=== PATIENT | female | born 1990 | race African-American/Black ===

== ENCOUNTER 2016-08-15 01:45 | Emergency (ER) | payer SELFPAY ==
[~2016-08-15] VITALS: Ht 154.9 cm; Wt 44.5 kg
[2016-08-15 02:00] VITALS: BP 124/58
[2016-08-15 02:07] LABS: BILIRUBIN,URINE NEGATIVE (NEG); GLUCOSE,URINE NEGATIVE (NEG); NITRITE,URINE NEGATIVE (NEG); PH,URINE 7.5; PROTEIN,URINE NEGATIVE (NEG-TRACE); UROBILINOGEN,URINE 0.2 mg/dL (0.2 mg/dL)
[2016-08-15 02:13] LABS: BACTERIA,URINE MODERATE /HPF (0-FEW); RBC,URINE OCC /HPF (0-2); SQUAMOUS EPITHELIAL CELL,UR MOD /LPF
[2016-08-15 02:27] LABS: BASO % 0 % (0-3); EOS % 1 % (0-3); HEMOGLOBIN 12.6 g/dL (12.0-15.5); LYMPH # 4.3 x10^3/uL (1.0-4.8); LYMPH % 42 % (24-48); MEAN CORPUSCULAR HEMOGLOBIN 29 pg (25-35); MEAN CORPUSCULAR HGB CONC 34 g/dL (31-37); MEAN CORPUSCULAR VOLUME 86 fL (79-100); MONO % 9 % (0-9); NEUT % 48 % (31-73); PLATELET COUNT 272 x10^3/uL (140-400); RED BLOOD COUNT 4.29 x10^6/uL (3.50-5.40); RED CELL DISTRIBUTION WIDTH 13.1 % (11.5-14.5); WHITE BLOOD COUNT 10.2 x10^3/uL (4.0-11.0)
[2016-08-15] MEDS ORDERED: NITR100C62 PO (02:40)
--- NOTE | 2016-08-15 02:40 | PHYS DOC ---
Past Medical History Past Medical History: Other Additional Past Medical Histor: RAPID HEART RATE Past Surgical History: Tonsillectomy Alcohol Use: None Drug Use: None Adult General Chief Complaint Chief Complaint: ABDOMINAL PAIN IN HPI HPI Patient is a 26 year old female presents to emergency department for evaluation of abdominal pain in early . She says that the pain is suprapubic and associated with some dysuria and vaginal discharge but no nausea vomiting diarrhea constipation. Pain is sharp. She is with 4 prior miscarriages. Eyes any vaginal bleeding to me. She reports that her last menstrual period was on July 14. She is in no obvious distress with normal vital signs. Review of Systems Review of Systems Constitutional: Denies fever or chills [] GI: + abdominal pain. No nausea, vomiting, bloody stools or diarrhea [] : + dysuria. No hematuria [] Musculoskeletal: Denies back pain or joint pain [ Neurologic: Denies headache, focal weakness or sensory changes [] Allergies Allergies Allergies Coded Allergies Type Severity Reaction Last Updated Verified No Known Drug Allergies 09/25/13 No Physical Exam Physical Exam Constitutional: Well developed, well nourished, no acute distress, non-toxic appearance. [] Cardiovascular:Heart rate regular rhythm, no murmur [] Lungs & Thorax: Bilateral breath sounds clear to auscultation [] Abdomen: Bowel sounds normal, soft, no tenderness, no masses, no pulsatile masses. [] DOCUMENT MANAGEMENT CONSULTANT: vaginal discharge noted. No bleeding noted. Neg CMT or adnexal tenderness. Neurologic: Alert and oriented X 3, normal motor function, normal sensory function, no focal deficits noted. [] Current Patient Data Vital Signs Vital Signs Date Time Temp Pulse Resp B/P Pulse Ox O2 Delivery O2 Flow Rate FiO2 08/15/16 02:00 98.4 125 16 124/58 98 Room Air 98.4 Lab Values Laboratory Tests Test 08/15/16 01:04 08/15/16 02:00 08/15/16 02:22 POC Urine HCG, Qualitative Hcg positive (Negative) Urine Collection Type Unknown Urine Color Yellow Urine Clarity Cloudy Urine pH 7.5 Urine Specific [place] 1.020 Urine Protein Negativemg/dL (NEG-TRACE) Urine Glucose (UA) Negativemg/dL (NEG) Urine Ketones (Stick) Negativemg/dL (NEG) Urine Blood Negative (NEG) Urine Nitrite Negative (NEG) Urine Bilirubin Negative (NEG) Urine Urobilinogen Dipstick 0.2mg/dL (0.2 mg/dL) Urine Leukocyte Esterase Small (NEG) Urine RBC Occ/HPF (0-2) Urine WBC 5-10/HPF (0-4) Urine Squamous Epithelial Cells Mod/LPF Urine Amorphous Sediment Present/HPF Urine Bacteria Moderate/HPF (0-FEW) Urine Mucus Slight/LPF White Blood Count 10.2x10^3/uL (4.0-11.0) Red Blood Count 4.29x10^6/uL (3.50-5.40) Hemoglobin 12.6g/dL (12.0-15.5) Hematocrit 37.0% (36.0-47.0) Mean Corpuscular Volume 86fL (79-100) Mean Corpuscular Hemoglobin 29pg (25-35) Mean Corpuscular Hemoglobin Concent 34g/dL (31-37) Red Cell Distribution Width 13.1% (11.5-14.5) Platelet Count 272x10^3/uL (140-400) Neutrophils (%) (Auto) 48% (31-73) Lymphocytes (%) (Auto) 42% (24-48) Monocytes (%) (Auto) 9% (0-9) Eosinophils (%) (Auto) 1% (0-3) Basophils (%) (Auto) 0% (0-3) Neutrophils # (Auto) 4.9x10^3uL (1.8-7.7) Lymphocytes # (Auto) 4.3x10^3/uL (1.0-4.8) Monocytes # (Auto) 0.9x10^3/uL (0.0-1.1) Eosinophils # (Auto) 0.1x10^3/uL (0.0-0.7) Basophils # (Auto) 0.0x10^3/uL (0.0-0.2) Maternal Serum HCG Beta Subunit 196mIU/mL (0-6) H Laboratory Tests 08/15/16 02:22 Microbiology 08/15/16 Wet Prep - Final, Complete EKG EKG [] Radiology/Procedures Radiology/Procedures [] Course & Med Decision Making Course & Med Decision Making Patient with abdominal pain in early . Possible UTI based off urinary symptoms and they stopped having dysuria and suprapubic pain we'll go ahead and treat. She also has clue cells along with vaginal discharge that she'll be treated with Flagyl. HCG is quite low and she has no unilateral adnexal pain on exam so she'll be discharged with instruction to follow with a OB and come back to the ER sooner with worsening pain bleeding or vaginal concerns. Patient aware and agreeable with plan and verbalized understanding of the above instructions. Dragon Disclaimer Dragon Disclaimer This electronic medical record was generated, in whole or in part, using a voice recognition dictation system. Departure Departure Impression: Primary Impression: Abdominal pain during Additional Impressions: UTI (urinary tract infection) in in first trimester Bacterial vaginosis Disposition: HOME, SELF-CARE Condition: GOOD Referrals: CORETTA PEREIRA MD (PCP) JULIA STEVENSON Jr, MD Patient Instructions: Abdominal Pain During Scripts Metronidazole (Flagyl)500 Mg Tablet1 Tab PO BID #14 TAB Prov:JOSE MANUEL ACEVEDO DO 08/15/16 Nitrofurantoin Monohyd/M-Cryst (Macrobid 100 Mg Capsule)100 Mg Capsule1 Cap PO BID #14 CAP Prov:JOSE MANUEL AECVEDO DO 08/15/16 Problem Qualifiers Primary Impression: Abdominal pain during Trimester: first trimester Qualified Code: O26.891 - Other specified related conditions, first trimester JOSE MANUEL ACEVEDO DO August 15, 2016 02:40
[2016-08-15] MEDS ORDERED: METR500T PO (03:03)
== END 2016-08-15 03:38 | disposition home or self-care (01) ==
LOC: ER 01:45
DX: O23.41 Unspecified infection of urinary tract in pregnancy, first trimester (principal); Z3A.01 Less than 8 weeks gestation of pregnancy; O23.591 Infection of other part of genital tract in pregnancy, first trimester; N76.0 Acute vaginitis; B96.89 Other specified bacterial agents as the cause of diseases classified elsewhere
CPT/HCPCS: 36415; 81001; 84702; 84703; 85027; 87086; 87491; 87591; 99284; Q0111; 81025

== ENCOUNTER 2016-08-22 09:29 | Emergency (ER) | payer SELFPAY ==
[~2016-08-22] VITALS: Ht 156.2 cm; Wt 45.4 kg
[~2016-08-22 09:29] MED LIST: METR500T PO; NITR100C62 PO
[2016-08-22] MEDS ORDERED: IV NORMAL SALINE 1000ML BAG 1,000 ML IV SCH (09:36)
[2016-08-22] MEDS ORDERED: 0.9 % SODIUM CHLORIDE 10 ML DISP.SYRIN. IV PRN (09:45)
[2016-08-22 09:47] LABS: BILIRUBIN,URINE NEGATIVE (NEG); GLUCOSE,URINE NEGATIVE (NEG); NITRITE,URINE NEGATIVE (NEG); PH,URINE 7.5; PROTEIN,URINE NEGATIVE (NEG-TRACE); UROBILINOGEN,URINE 0.2 mg/dL (0.2 mg/dL)
[2016-08-22 10:03] LABS: BACTERIA,URINE 0 /HPF (0-FEW); RBC,URINE 0 /HPF (0-2); SQUAMOUS EPITHELIAL CELL,UR MOD /LPF; WBC,URINE 0 /HPF (0-4)
[2016-08-22 10:12] LABS: BASO % 0 % (0-3); EOS % 2 % (0-3); HEMATOCRIT 34.3 % (36.0-47.0); LYMPH # 2.5 x10^3/uL (1.0-4.8); LYMPH % 36 % (24-48); MEAN CORPUSCULAR HEMOGLOBIN 30 pg (25-35); MEAN CORPUSCULAR HGB CONC 35 g/dL (31-37); MEAN CORPUSCULAR VOLUME 85 fL (79-100); MONO % 12 % (0-9); NEUT % 49 % (31-73); PLATELET COUNT 302 x10^3/uL (140-400); RED BLOOD COUNT 4.03 x10^6/uL (3.50-5.40); RED CELL DISTRIBUTION WIDTH 12.9 % (11.5-14.5); WHITE BLOOD COUNT 6.9 x10^3/uL (4.0-11.0)
--- NOTE | 2016-08-22 10:12 | PHYS DOC ---
Past Medical History Past Medical History: No Pertinent History Additional Past Medical Histor: RAPID HEART RATE Past Surgical History: Tonsillectomy, Other Additional Past Surgical Histo: adenoidectomy Smoking: Cigarettes, 1 Pack Per Day Additional Information: 10-15 cigarettes daily Alcohol Use: None Drug Use: None Adult General Chief Complaint Chief Complaint: VAGINAL BLEEDING [facility] HPI Patient is a pleasant 26-year-old is about 5 weeks by last menstrual period she presents with some mild spotting pinkish discharge from her vagina. He denies any trauma or lower abdominal pain until just now getting here described as a mild cramping in illness in the left lower quadrant. Patient denies any history of UTI symptoms, denies any nausea, denies any vomiting or diarrhea. Patient has had no lightheaded dizziness or other symptoms that would be caused by significant blood loss. Pain is not changed with position has not improved with eating food not worsened by eating food or with bowel problems or urination. Review of Systems Review of Systems Constitutional: Denies fever or chills [] Eyes: Denies change in visual acuity, redness, or eye pain [] HENT: Denies nasal congestion or sore throat [] Respiratory: Denies cough or shortness of breath [] Cardiovascular: No additional information not addressed in HPI [] GI: She has some lower abdominal pain now described as crampy and achy. : Denies dysuria or hematuria [] Musculoskeletal: Denies back pain or joint pain [] Integument: Denies rash or skin lesions [] Neurologic: Denies headache, focal weakness or sensory changes [] Endocrine: Denies polyuria or polydipsia [] Current Medications Current Medications Current Medications Medications (Trade) Dose Ordered Sig/[place] Start Time Stop Time Status Last Admin Dose Admin Sodium Chloride (Normal Saline Flush) 10 ml QSHIFT PRN 08/22/16 09:45 Allergies Allergies Allergies Coded Allergies Type Severity Reaction Last Updated Verified No Known Drug Allergies 09/25/13 No Physical Exam Physical Exam Constitutional: Well developed, well nourished, no acute distress, non-toxic appearance. [] HENT: Normocephalic, atraumatic, bilateral external ears normal, oropharynx mois Cardiovascular:Heart rate regular rhythm, no murmur [] Lungs & Thorax: Bilateral breath sounds clear to auscultation [] Abdomen: Bowel tenderness in left lower quadrant. Pelvic exam reveals no vaginal bleeding or discharge. Vaginal mucosa is normal pink in color external vagina looks normal in appearance with no CMT os is closed no adnexal tenderness or fullness. Skin: Warm, dry, no erythema, no rash. [] Back: No tenderness, no CVA tenderness. [] Extremities: No tenderness, no cyanosis, no clubbing, ROM intact, no edema. [] Neurologic: Alert and oriented X 3, normal motor function, normal sensory function, no focal deficits noted. [] Psychologic: patient mildly anxious secondary to possibly losing .. [] Current Patient Data Vital Signs Vital Signs Date Time Temp Pulse Resp B/P (MAP) Pulse Ox O2 Delivery O2 Flow Rate FiO2 08/22/16 12:00 85 16 103/51 (68) 100 Room Air 08/22/16 09:38 98.5 98.5 Lab Values Laboratory Tests Test 08/22/16 08:42 08/22/16 09:35 08/22/16 09:55 POC Urine HCG, Qualitative Hcg positive (Negative) Urine Collection Type Unknown Urine Color Yellow Urine Clarity Clear Urine pH 7.5 Urine Specific [place] <=1.005 Urine Protein Negative mg/dL (NEG-TRACE) Urine Glucose (UA) Negative mg/dL (NEG) Urine Ketones (Stick) Negative mg/dL (NEG) Urine Blood Negative (NEG) Urine Nitrite Negative (NEG) Urine Bilirubin Negative (NEG) Urine Urobilinogen Dipstick 0.2 mg/dL (0.2 mg/dL) Urine Leukocyte Esterase Negative (NEG) Urine RBC 0 /HPF (0-2) Urine WBC 0 /HPF (0-4) Urine Squamous Epithelial Cells Mod /LPF Urine Bacteria 0 /HPF (0-FEW) White Blood Count 6.9 x10^3/uL (4.0-11.0) Red Blood Count 4.03 x10^6/uL (3.50-5.40) Hemoglobin 12.0 g/dL (12.0-15.5) Hematocrit 34.3 % (36.0-47.0) L Mean Corpuscular Volume 85 fL (79-100) Mean Corpuscular Hemoglobin 30 pg (25-35) Mean Corpuscular Hemoglobin Concent 35 g/dL (31-37) Red Cell Distribution Width 12.9 % (11.5-14.5) Platelet Count 302 x10^3/uL (140-400) Neutrophils (%) (Auto) 49 % (31-73) Lymphocytes (%) (Auto) 36 % (24-48) Monocytes (%) (Auto) 12 % (0-9) H Eosinophils (%) (Auto) 2 % (0-3) Basophils (%) (Auto) 0 % (0-3) Neutrophils # (Auto) 3.4 x10^3uL (1.8-7.7) Lymphocytes # (Auto) 2.5 x10^3/uL (1.0-4.8) Monocytes # (Auto) 0.8 x10^3/uL (0.0-1.1) Eosinophils # (Auto) 0.2 x10^3/uL (0.0-0.7) Basophils # (Auto) 0.0 x10^3/uL (0.0-0.2) Maternal Serum HCG Beta Subunit 6386 mIU/mL (0-6) H Sodium Level 138 mmol/L (136-145) Potassium Level 3.6 mmol/L (3.5-5.1) Chloride Level 106 mmol/L (98-107) Carbon Dioxide Level 26 mmol/L (21-32) Anion Gap 6 (6-14) Blood Urea Nitrogen 6 mg/dL (7-20) L Creatinine 0.6 mg/dL (0.6-1.0) Estimated GFR (Cockcroft-Gault) 148.6 BUN/Creatinine Ratio 10 (6-20) Glucose Level 88 mg/dL (70-99) Calcium Level 8.3 mg/dL (8.5-10.1) L Total Bilirubin 0.2 mg/dL (0.2-1.0) Aspartate Amino Transferase (AST) 14 U/L (15-37) L Alanine Aminotransferase (ALT) 20 U/L (14-59) Alkaline Phosphatase 46 U/L (46-116) Total Protein 6.4 g/dL (6.4-8.2) Albumin 3.4 g/dL (3.4-5.0) Albumin/Globulin Ratio 1.1 (1.0-1.7) Laboratory Tests 08/22/16 09:55 Laboratory Tests 08/22/16 09:55 Microbiology 08/22/16 Wet Prep - Final, Complete EKG EKG [] Radiology/Procedures Radiology/Procedures [] Signed PATIENT: MIRTA HAMMER ACCOUNT: [id number] : 1990 LOCATION: ER AGE: 26 SEX: F EXAM STATUS: REG ER ORD. PHYSICIAN: ROSCOE DENTON MD REASON: 5 WKS bleeding and lower ab pain PROCEDURE: OB <14 WKS W/TV Indication: Spotting. The uterus measures 9.3 x 5.8 x 6.4 cm. There is an intrauterine gestational sac measuring approximately 5 weeks 5 days gestation. There is a yolk sac present. However, no pole is identified at this time. No perigestational sac hemorrhage is detected. The right ovary is unremarkable. The left ovary does contain a 3.7 x 3.5 cm cyst. No other adnexal mass is seen. No free fluid is identified. Impression: Approximately 5 week 5 day intrauterine gestational sac. No pole is identified at this time, which may be owing to early gestation. A follow-up ultrasound and/or correlation with serial beta hCG levels could be performed to confirm viability. Note is made of a 3.7 cm simple cyst within the left ovary. DICTATED and SIGNED BY: ZACH FAM MD DATE: 08/22/16 1029 CC: ROSCOE DENTON MD; CORETTA PEREIRA MD ~ Course & Med Decision Making Course & Med Decision Making Pertinent Labs and Imaging studies reviewed. (See chart for details) [] Since vital signs and laboratory work was reviewed on initial evaluation patient was tachycardic. Her tachycardia is now resolved with treatment here in the emergency department now that she knows her and she is in the right place. Her H&H is nice and stable urinalysis is clear her Quant was 6800 she is A-. She has received program in the past and is waiting for Roc[facility] at this time. UltrasoundIUP with clear gestational sac no cardiac activity at this time. Discussed with patient and family at bedside reasons to return reasons for follow-up Impression: Threatened miscarriage, abdominal pain with . Signed disposition: Discharge to home with follow-up with her primary care LIBRARY DIRECTOR in 12 -24 hours if symptoms continue 48 hours for repeat quantitative hCG and repeat ultrasound at the surgery. Bleeding precautions abdominal pain precautions given. Was given these instructions with her at bedside. Dragon Disclaimer Dragon Disclaimer This electronic medical record was generated, in whole or in part, using a voice recognition dictation system. Departure Departure Referrals: CORETTA PEREIRA MD (PCP) Scripts Ondansetron (ZOFRAN ODT) 4 Mg Tab.rapdis 4 MG PO BID Y for NAUSEA/VOMITING for 7 Days, #14 TAB Prov: ROSCOE DENTON MD 08/22/16 ROSCOE DENTON MD August 22, 2016 10:12
[2016-08-22 10:16] LABS: CALCIUM 8.3 mg/dL (8.5-10.1); CREATININE 0.6 mg/dL (0.6-1.0); GFR 148.6; POTASSIUM 3.6 mmol/L (3.5-5.1)
[2016-08-22 10:23] LABS: ALBUMIN 3.4 g/dL (3.4-5.0); ALBUMIN/GLOBULIN RATIO 1.1 (1.0-1.7); TOTAL BILIRUBIN 0.2 mg/dL (0.2-1.0); TOTAL PROTEIN 6.4 g/dL (6.4-8.2)
--- NOTE | 2016-08-22 10:35 | RAD ---
Indication: Spotting. The uterus measures 9.3 x 5.8 x 6.4 cm. There is an intrauterine gestational sac measuring approximately 5 weeks 5 days gestation. There is a yolk sac present. However, no pole is identified at this time. No perigestational sac hemorrhage is detected. The right ovary is unremarkable. The left ovary does contain a 3.7 x 3.5 cm cyst. No other adnexal mass is seen. No free fluid is identified. Impression: Approximately 5 week 5 day intrauterine gestational sac. No pole is identified at this time, which may be owing to early gestation. A follow-up ultrasound and/or correlation with serial beta hCG levels could be performed to confirm viability. Note is made of a 3.7 cm simple cyst within the left ovary.
[2016-08-22] MEDS ORDERED: ONDA4TAB10 PO (12:32)
[2016-08-22 12:59] VITALS: BP 97/55
== END 2016-08-22 13:02 | disposition home or self-care (01) ==
LOC: ER 09:29
DX: O20.0 Threatened abortion (principal); O99.331 Smoking (tobacco) complicating pregnancy, first trimester; Z3A.01 Less than 8 weeks gestation of pregnancy
CPT/HCPCS: 36415; 76801; 76817; 80053; 81001; 81025; 84702; 85027; 86850; 86900; 86901; 87491; 87591; 96360; 96361; 99285; J2791; J7030; Q0111

== ENCOUNTER 2017-05-17 18:31 | Emergency (ER) | payer OTHER ==
[2017-05-17 20:29] LABS: BILIRUBIN,URINE NEGATIVE (NEG); CLARITY,URINE CLEAR; COLOR,URINE YELLOW; GLUCOSE,URINE NEGATIVE (NEG); NITRITE,URINE NEGATIVE (NEG); PH,URINE 7.5; PROTEIN,URINE NEGATIVE (NEG-TRACE); UROBILINOGEN,URINE 0.2 mg/dL (0.2 mg/dL)
[2017-05-17 20:50] LABS: BACTERIA,URINE FEW /HPF (0-FEW); RBC,URINE OCC /HPF (0-2); SQUAMOUS EPITHELIAL CELL,UR MOD /LPF
[2017-05-17 21:30] LABS: NEG OBC UR NEG; POS OBC UR POS; U PREG PATIENT NEGATIVE (NEG)
[2017-05-21 01:12] LABS: CHLAMYDIA PROBE Negative (Negative); GC PROBE Negative (Negative)
== END 2017-05-17 21:18 | disposition home or self-care (01) ==
LOC: ER 18:31
DX: O86.13 Vaginitis following delivery (principal); O86.20 Urinary tract infection following delivery, unspecified; B96.89 Other specified bacterial agents as the cause of diseases classified elsewhere; Z88.1 Allergy status to other antibiotic agents
CPT/HCPCS: 81001; 81025; 87086; 87491; 87591; 99284; Q0111